=== PATIENT | male | born 1985 | race African-American/Black ===

== ENCOUNTER 2018-10-18 12:00 | Emergency (ER) | payer OTHER ==
[~2018-10-18] VITALS: Ht 170.2 cm; Wt 68.0 kg
[2018-10-18 12:03] VITALS: BP 146/76; PULSE 113; RESP 18; Ht 170.2 cm; Wt 68.0 kg
[2018-10-18] MEDS ORDERED: CEFU500T45 PO (15:03)
--- NOTE | 2018-10-18 15:06 | ERD ---
ER Documentation Chief Complaint Chief Complaint pt is bib self with c/o "sinus head pain and congestion" for a few days HPI 33-year-old male presents with one-week history of pain in the left maxillary area. He also has nasal congestion. Denies fevers. Has mild cough and postnasal drip. Patient has a history of treated HIV although he has not had a medical appointment" a long time ". He does have an appointment coming up in approximately 2 months. Denies any vomiting, vomiting, chest pain. Denies any history of HIV related infections. Patient has some skin lesions on his left mixon although denies any trauma. ROS All systems reviewed and are negative except as per history of present illness. Medications Home Meds Active Scripts Cefuroxime Axetil* (Cefuroxime Axetil*) 500 Mg Tablet, 500 MG PO BID for 10 Days, #20 TAB Prov:VICENTE SUMNER MD 10/18/18 Allergies Allergies: Coded Allergies: No Known Allergy (Unverified , 10/18/18) PMhx/Soc Hx Psychiatric Problems: Yes (Depression) Hx Miscellaneous Medical Probl: Yes (HIV) Hx Alcohol Use: No Hx Substance Use: No Hx Tobacco Use: Yes Smoking Status: Light tobacco smoker FmHx Family History: No diabetes, No coronary disease, No other Physical Exam Vitals Vital Signs Date Temp Pulse Resp B/P (MAP) Pulse Ox O2 O2 Flow FiO2 Time Delivery Rate 10/18/18 98.6 113 18 146/76 98 12:03 (99) Physical Exam Const: No acute distress Head: Atraumatic Eyes: Normal Conjunctiva ENT: Normal External Ears, Nose and Mouth. Left maxillary sinus. Postnasal drip. Neck: Full range of motion. No meningismus. Resp: Clear to auscultation bilaterally Cardio: Regular rate and rhythm, no murmurs Abd: Soft, non tender, non distended. Normal bowel sounds Skin: No petechiae or rashes. Healing superficial 1 cm ulcerative lesions on the left mixon. No erythema, discharge or bleeding. No palmar lesions. No other skin lesions noted other than the left leg. Back: No midline or flank tenderness Ext: No cyanosis, or edema Neur: Awake and alert Psych: Normal Mood and Affect Result Diagram: 10/18/18 1347 10/18/18 1347 Results 24 hrs Laboratory Tests Test 10/18/18 13:47 White Blood Count 6.1 10^3/ul Red Blood Count 4.73 10^6/ul Hemoglobin 13.5 g/dl Hematocrit 41.6 % Mean Corpuscular Volume 87.9 fl Mean Corpuscular Hemoglobin 28.5 pg Mean Corpuscular Hemoglobin Concent 32.5 g/dl Red Cell Distribution Width 12.4 % Platelet Count 375 10^3/UL Mean Platelet Volume 8.9 fl Immature Granulocytes % 0.300 % Neutrophils % 78.3 % Lymphocytes % 14.8 % Monocytes % 5.4 % Eosinophils % 1.0 % Basophils % 0.2 % Nucleated Red Blood Cells % 0.0 /100WBC Immature Granulocytes # 0.020 10^3/ul Neutrophils # 4.8 10^3/ul Lymphocytes # 0.9 10^3/ul Monocytes # 0.3 10^3/ul Eosinophils # 0.1 10^3/ul Basophils # 0.0 10^3/ul Nucleated Red Blood Cells # 0.0 10^3/ul Sodium Level 139 mmol/L Potassium Level 4.3 mmol/L Chloride Level 102 mmol/L Carbon Dioxide Level 30 mmol/L Anion Gap 7 Blood Urea Nitrogen 16 mg/dl Creatinine 1.01 mg/dl Est Glomerular Filtrat Rate mL/min > 60 mL/min Glucose Level 89 mg/dl Calcium Level 9.3 mg/dl Total Bilirubin 0.4 mg/dl Direct Bilirubin 0.00 mg/dl Indirect Bilirubin 0.4 mg/dl Aspartate Amino Transf (AST/SGOT) 20 IU/L Alanine Aminotransferase (ALT/SGPT) 13 IU/L Alkaline Phosphatase 78 IU/L Total Protein 8.0 g/dl Albumin 3.8 g/dl Globulin 4.20 g/dl Albumin/Globulin Ratio 0.90 Procedures/MDM CBC shows minimal anemia. No leukocytosis. CMP normal. RPR pending. She is well-appearing and ambulatory without concerning signs or symptoms. Will treat empirically given facial pain and postnasal drip with Ceftin, ibuprofen, primary care follow-up and return precautions. He was advised RPR will return the next 1 to 2 days. She should continue follow-up with his HIV doctor return for new worsening symptoms as directed. The patient was stable with no new complaints during the ER course. Clinically, there is no current evidence to suggest meningitis, sepsis, acute abdomen, pneumonia, stroke, acute coronary syndrome, pulmonary embolism, aortic dissection or any other emergent condition appearing to require further evaluation or hospitalization. Patient counseled regarding my diagnostic impression and care plan. Prior to discharge all questions answered. Pt agrees with treatment plan and understands strict return precautions. Pt is instructed to follow up with primary care provider within 24- 48 hours. Precautionary instructions provided including instructions to return to the ER if not improving or for any worsening or changing symptoms or concerns. Departure Diagnosis: Primary Impression: Sinus pain Condition: Stable Patient Instructions: Sinusitis, Abx Tx, Symptoms With Uncertain Cause Additional Instructions: Laboratory evaluation normal today. Examination for syphilis will return in the next 1 to 2 days. We will treat for cystitis. Follow-up with primary doctor as scheduled. Recheck otherwise for new or worsening symptoms. VICENTE SUMNER MD Oct 18, 2018 15:06
[2018-10-18] MEDS ORDERED: IBUP-1542 PO (15:07)
[2018-10-18] MEDS ORDERED: FLUT9.9S NASAL (15:07)
== END 2018-10-18 15:19 | disposition home or self-care (01) ==
LOC: FTE 12:00
DX: J34.89 Other specified disorders of nose and nasal sinuses (principal); F17.210 Nicotine dependence, cigarettes, uncomplicated
CPT/HCPCS: 80053; 85025; 86592; Z7502; 99283